=== PATIENT | female | born 1955 | race African-American/Black ===

== ENCOUNTER 2017-01-07 15:16 | Emergency (ER) | payer MEDICAID, MEDICARE ==
[~2017-01-07] VITALS: Ht 175.3 cm; Wt 77.0 kg
[~2017-01-07 15:16] MED LIST: ALBU2.5V13 NEB; HYDR-3992 PO; OXYC-159 PO; TRAZ-129 PO
[2017-01-07] MEDS ORDERED: KETOROLAC 60MG/2ML VIAL IM ONE (18:00)
[2017-01-07] MEDS ORDERED: BACITRACIN ZINC OINT UDPKT TOP ONE (18:45)
[2017-01-07] MEDS ORDERED: LIDOCAINE HCL 1% 20ML VIAL (Pyxis) INJ MC ONE (18:45)
[2017-01-07 20:01] LABS: HEPATITIS B SURFACE ANTIGEN NEGATIVE
[2017-01-07 20:12] VITALS: BP 117/75
== END 2017-01-07 20:44 | disposition home or self-care (01) ==
LOC: ER 15:30
DX: L02.426 Furuncle of left lower limb (principal); L73.2 Hidradenitis suppurativa; J44.9 Chronic obstructive pulmonary disease, unspecified; Z48.01 Encounter for change or removal of surgical wound dressing
CPT/HCPCS: 10060; 36415; 96372; 99283; J1885; J3490

== ENCOUNTER 2020-11-15 13:09 | Emergency (ER) | payer MEDICARE, MEDICAID ==
[~2020-11-15] VITALS: Ht 170.2 cm; Wt 89.0 kg
[~2020-11-15 13:09] MED LIST changes: -TRAZ-129 PO; +TRAZ-251 PO
[2020-11-15] MEDS ORDERED: HYDROCODONE/ACETAMINOPHEN 5/325MG TABLET PO STA (13:41)
[2020-11-15] MEDS ORDERED: ACETAMINOPHEN 325MG TABLET PO STA (13:41)
[2020-11-15] MEDS ORDERED: SODIUM CHLORIDE 0.9% 1,000 ML IV ONE (13:45)
[2020-11-15 14:06] LABS: BASOPHILS % 0.8 % (0.0-2.0); EOSINOPHILS % 3.9 % (0.0-5.0); HEMATOCRIT. 32.6 % (36.0-48.0); HEMOGLOBIN. 11.1 g/dL (12.0-16.0); LYMPHOCYTES % 21.7 % (20.0-50.0); MEAN CORPUSCULAR HEMOGLOBIN 26.9 pg (28.0-32.0); MEAN CORPUSCULAR VOLUME 78.8 fL (81.0-99.0); MONOCYTES % 7.3 % (2.0-8.0); NEUTROPHILS % 66.3 % (40.0-76.0); PLATELET 319 x1000/uL (130-400); RED BLOOD CELL COUNT 4.14 mill/uL (4.2-5.4); RED CELL DISTRIBUTION WIDTH 16.5 % (11.6-14.6)
[2020-11-15 14:10] LABS: CHLORIDE 109 mEq/L (98-107)
[2020-11-15] MEDS ORDERED: HYDR-4001 MT (16:29)
[2020-11-15] MEDS ORDERED: KETOROLAC 15MG/ML VIAL IV ONE (16:30)
[2020-11-15 17:15] VITALS: BP 125/86
== END 2020-11-15 17:33 | disposition home or self-care (01) ==
LOC: ER 13:26
DX: M54.5 Low back pain (principal); R55 Syncope and collapse; F41.9 Anxiety disorder, unspecified; J44.9 Chronic obstructive pulmonary disease, unspecified; Z86.73 Personal history of transient ischemic attack (TIA), and cerebral infarction without residual deficits; Z98.1 Arthrodesis status; Z96.659 Presence of unspecified artificial knee joint; Z88.8 Allergy status to other drugs, medicaments and biological substances; W10.8XXA Fall (on) (from) other stairs and steps, initial encounter; Y93.89 Activity, other specified; Y92.218 Other school as the place of occurrence of the external cause; Y99.8 Other external cause status
CPT/HCPCS: 36415; 70450; 72125; 72128; 72131; 80048; 85025; 93005; 96361; 96374; 99285; J1885; J7030

== ENCOUNTER 2021-09-30 15:51 | Emergency (ER) | payer MEDICARE, MEDICAID ==
[~2021-09-30] VITALS: Ht 177.8 cm; Wt 91.0 kg
[~2021-09-30 15:51] MED LIST changes: +HYDR-4001 MT
[2021-09-30] MEDS ORDERED: IBUPROFEN 600MG TABLET PO ONE (16:30)
[2021-09-30] MEDS ORDERED: ALBUTEROL (0.083%) 2.5MG/3ML NEB HHN STA (17:10)
[2021-09-30] MEDS ORDERED: PREDNISONE 20MG TABLET PO STA (17:10)
[2021-09-30 18:21] LABS: BASOPHILS % 0.5 % (0.0-2.0); HEMATOCRIT. 39.2 % (36.0-48.0); HEMOGLOBIN. 12.6 g/dL (12.0-16.0); LYMPHOCYTES % 36.5 % (20.0-50.0); MEAN PLATELET VOLUME 7.9 fl (7.4-10.4); MONOCYTES % 7.2 % (2.0-8.0); NEUTROPHILS % 55.8 % (40.0-76.0); PLATELET 317 x1000/uL (130-400); RED BLOOD CELL COUNT 4.67 mill/uL (4.2-5.4); RED CELL DISTRIBUTION WIDTH 16.1 % (11.6-14.6)
[2021-09-30 18:26] LABS: CHLORIDE 105 mEq/L (98-107)
[2021-09-30 19:40] VITALS: BP 126/85
[2021-09-30] MEDS ORDERED: ALBU6.7H9 INH (19:43)
[2021-09-30] MEDS ORDERED: P50 MT (19:43)
[2021-09-30] MEDS ORDERED: T3 PO (19:43)
[2021-09-30] MEDS ORDERED: IBUP-2029 MT (19:43)
[2021-09-30] MEDS ORDERED: CYCL10TA21 MT (19:43)
== END 2021-09-30 20:43 | disposition home or self-care (01) ==
LOC: ER 15:51
DX: S10.93XA Contusion of unspecified part of neck, initial encounter (principal); S60.211A Contusion of right wrist, initial encounter; J44.1 Chronic obstructive pulmonary disease with (acute) exacerbation; Z88.8 Allergy status to other drugs, medicaments and biological substances; Z86.73 Personal history of transient ischemic attack (TIA), and cerebral infarction without residual deficits; Z98.890 Other specified postprocedural states; W01.0XXA Fall on same level from slipping, tripping and stumbling without subsequent striking against object, initial encounter; Y93.89 Activity, other specified; Y92.89 Other specified places as the place of occurrence of the external cause; Y99.8 Other external cause status
CPT/HCPCS: 36415; 71045; 73110; 80053; 83880; 84484; 85025; 94640; 99285

== ENCOUNTER 2021-10-16 14:59 | Emergency (ER) | payer MEDICARE, MEDICAID ==
[~2021-10-16] VITALS: Ht 177.8 cm; Wt 100.0 kg
[~2021-10-16 14:59] MED LIST changes: +ALBU6.7H9 INH; +CYCL10TA21 MT; +IBUP-2029 MT; +P50 MT; +T3 PO
[2021-10-16 15:03] VITALS: BP 140/90
[2021-10-16] MEDS ORDERED: KETOROLAC 15MG/ML VIAL IM ONE (16:00)
== END 2021-10-16 17:08 | disposition home or self-care (01) ==
LOC: ER 14:59
DX: M79.18 Myalgia, other site (principal); M25.561 Pain in right knee; M25.562 Pain in left knee; F41.9 Anxiety disorder, unspecified; J44.9 Chronic obstructive pulmonary disease, unspecified; Z86.73 Personal history of transient ischemic attack (TIA), and cerebral infarction without residual deficits; Z79.899 Other long term (current) drug therapy
CPT/HCPCS: 96372; 99283; J1885